=== PATIENT | female | born 1965 | race Caucasian/White ===

== ENCOUNTER 2019-08-31 01:24 | Inpatient (IN) | payer MEDICARE ==
[~2019-08-31] VITALS: Ht 157.5 cm; Wt 112.6 kg
[2019-08-31] MEDS ORDERED: FLUO40CA PO (04:26)
[2019-08-31 09:09] VITALS: BP 121/67
[2019-08-31] MEDS ORDERED: ALEV220T22 PO (09:51)
[2019-08-31] MEDS ORDERED: CHOL100029 PO (09:51)
[2019-08-31] MEDS ORDERED: CVS10CAP8 PO (09:51)
[2019-08-31] MEDS ORDERED: BUSP10TA PO (09:51)
[2019-08-31] MEDS ORDERED: OFIR10IN IV (09:51)
[2019-08-31] MEDS ORDERED: HYDR50TA70 PO ×2 (09:51)
[2019-08-31] MEDS ORDERED: ZOSY3INJ2 IV (09:51)
[2019-08-31] MEDS ORDERED: IRON325T9 PO (09:51)
[2019-08-31] MEDS ORDERED: [UNRECOGNIZED DRUG - CODE] INJ (09:51)
[2019-08-31] MEDS: NS 1,000 ML IV SCH ×3 (09:58→17:01)
[2019-08-31] MEDS: ACETAMINOPHEN TAB 650MG DOSE (2X325MG) PO PRN (09:58)
[2019-08-31 10:12] LABS: HEMATOCRIT 39.3 % (36.0-47.0); HEMOGLOBIN 12.6 g/dl (12.0-15.5); MEAN CORPUSCULAR HEMOGLOBIN 28.4 pg (27.0-33.0); MEAN CORPUSCULAR HGB CONC 32.1 g/dl (32.0-36.5); MEAN CORPUSCULAR VOLUME 88.5 fl (80.0-96.0); PLATELET COUNT, AUTOMATED 222 10^3/uL (150-450); RED BLOOD COUNT 4.44 10^6/uL (4.00-5.40); WHITE BLOOD COUNT 28.8 10^3/uL (4.0-10.0)
[2019-08-31 10:42] LABS: CALCIUM LEVEL 8.9 MG/DL (8.5-10.1); CREATININE FOR GFR 1.13 MG/DL (0.55-1.30); GLOMERULAR FILTRATION RATE 53.6 (>51); POTASSIUM SERUM 3.9 MEQ/L (3.5-5.1)
[2019-08-31 14:00] VITALS: BP 125/67
[2019-08-31] MEDS: FLUoxetine 20 MG CAP PO SCH (15:00)
[2019-08-31] MEDS ORDERED: ONDANSETRON 4 MG TAB (S0181) PO PRN (15:30)
[2019-08-31] MEDS ORDERED: KETOROLAC 30 MG/ML VIAL (J1885) IV PRN (15:30)
[2019-08-31] MEDS ORDERED: hydrOXYzine 50 MG TAB PO PRN (15:30)
[2019-08-31] MEDS: busPIRone 10 MG TAB PO SCH ×2 (16:00→22:00)
--- NOTE | 2019-08-31 16:30 | HPEPDOC ---
[facility] Medical History & Physical Date of Admission Aug 31, 2019 Date of Service: Aug 31, 2019 Attending Physician: JAVAN GRIDER MD History and Physical CHIEF COMPLAINT: Transferred for kidney stone HISTORY OF PRESENT ILLNESS: [54-year-old female with past medical history of anxiety, depression, vitamin D deficiency and renal calculi is transferred to [facility] for obstructing renal calculi. Patient reports feeling well up until yesterday, which is started having acute sharp abdominal and right flank pain similar to when she has had renovascular in the past. Her last episode of renal calculi was one year ago. She was found to have elevated white blood cell count of 20, lactate elevated to 3, transferred because no urologist available at other facility. Patient denies any short of breath, vomiting, diarrhea or constipation. 10 point review of system is negative except for above PAST MEDICAL HISTORY: 1. Anxiety and depression. 2. Vitamin D deficiency. 3. Renal calculi. PAST SURGICAL HISTORY: 1. Tubal ligation. SOCIAL HISTORY: Ex-smoker, quit 20 years ago, smoked 1 pack per day for 25 years Denies alcohol use. Denies drug use FAMILY HISTORY: Positive for diabetes mellitus ALLERGIES: Please see below. HOME MEDICATIONS: Please see below. PHYSICAL EXAMINATION: VITAL SIGNS: Please see below. GENERAL: No distress HEENT: Normocephalic, atraumatic, moist mucous membranes NECK: Supple CARDIOVASCULAR EXAMINATION: S1, S2, no murmurs RESPIRATORY EXAMINATION: Clear to auscultation, no wheezing ABDOMINAL EXAMINATION: Soft, mild diffuse tenderness, bilateral CVA tenderness, nondistended, positive bowel sounds EXTREMITIES: Range of motion intact SKIN: No rash NEUROLOGICAL EXAMINATION: Alert and oriented 3, no focal deficits PSYCHIATRIC EXAMINATION: Calm and cooperative LABORATORY DATA: See below. IMAGING: CT from other facility showing 11 mm right UPJ obstructing stone with moderate hydronephrosis MICROBIOLOGY: Please see below. ASSESSMENT: 54-year-old female with past medical history of anxiety, depression, vitamin D deficiency and renal calculi, presents with recurrent obstructive uropathy with moderate hydronephrosis and bacteremia. PLAN: 1. Obstructive uropathy. 11 mm calculi in the right UPJ with moderate hydronephrosis, blood cultures from other facility, positive, continue Zosyn, blood cultures pending, urology consulted (Dr. Gil), continue IV fluids, pain control, Zofran for nausea as needed. 2. Anxiety and depression. Continue home meds 3. Iron deficiency anemia Continue iron supplementation DVT prophylaxis: Heparin subcutaneous GI prophylaxis: Not needed Vital Signs Vital Signs Date Time Temp Pulse Resp B/P (MAP) Pulse Ox O2 Delivery O2 Flow Rate FiO2 08/31/19 09:09 98.6 83 16 121/67 (85) 97 Room Air Laboratory Data Labs 24H Laboratory Tests 2 08/31/19 09:56: Nucleated Red Blood Cells % (auto) 0.0, Anion Gap 8, Glomerular Filtration Rate 53.6, Calcium Level 8.9 CBC/BMP Laboratory Tests 08/31/19 09:56 Home Medications Scheduled Acetaminophen (Ofirmev) 1,000 Mg/100 Ml Vial, 1,000 MG IV ASDIRECTED RECEIVED AT [facility] Buspirone HCl (Buspirone HCl) 10 Mg Tablet, 20 MG PO TID Ferrous Sulfate (Iron) 325 Mg Tablet, 325 MG PO DAILY Fluoxetine Hcl (Fluoxetine HCl) 40 Mg Capsule, 40 MG PO BID TAKES MORNING AND 1500 Hydroxyzine HCl (Hydroxyzine HCl) 50 Mg Tablet, 50 MG PO QHS Ketorolac Tromethamine (Ketorolac Tromethamine) 60 Mg/2 Ml Syringe, 30 MG INJ ASDIRECTED RECEIVED AT [facility] Melatonin (Melatonin) 10 Mg Capsule, 10 MG PO QHS Piperacillin Sodium/Tazobactam (Zosyn 3.375 Gram Vial) 3.375 Gm Vial, 3.375 GM IV ASDIRECTED RECEIVED AT [facility] Vitamin D (Vitamin D3) 1,000 Unit Tablet, 1,000 UNITS PO DAILY Scheduled PRN Hydroxyzine HCl (Hydroxyzine HCl) 50 Mg Tablet, 50 MG PO BID PRN for ANXIETY Naproxen Sodium (Aleve) 220 Mg Tablet, 440 MG PO BID PRN for PAIN Allergies Coded Allergies: Sulfa (Sulfonamide Antibiotics) (Verified Allergy, Unknown, UNKNOWN, 08/31/19) divalproex sodium (Verified Adverse Reaction, Mild, "MAKES ME FLIP OUT", 08/31/19) A-FIB/CHADSVASC A-FIB History Current/History of A-Fib/PAF?: No JAVAN GRIDER MD Aug 31, 2019 16:30
[2019-08-31] MEDS ORDERED: ZOSYN 3.375 GM VIAL (J2543) IV SCH (17:00)
[2019-08-31] MEDS: PIPERACILLIN/TAZOBACTAM SOD 3.375 GM in D5W MINI-BAG PLUS 50 ML IV SCH ×2 (17:03→22:00)
--- NOTE | 2019-08-31 17:40 | SMCUROLCON ---
Urology Consultation General Date of Consultation 08/31/19 Reason For Consultation This patient is seen for Urolithiasis. History of Present Illness 54-year-old female with past medical history of anxiety, depression, vitamin D deficiency and renal calculi is transferred to [facility] for obstruct ing renal calculi. Patient reports feeling well up until yesterday, which is started having acute sharp abdominal upper right and radiating down the right side and right flank pain similar to when she has had obstructing stones in the past. Her last episode of renal calculi was one year ago. She was found to have elevated white blood cell count of 20, lactate elevated to 3, transferred because no urologist available at other facility. Patient denies any short of breath, vomiting, diarrhea or constipation. She requires Toradol for pain control. Past Medical History Medical History 1. Anxiety and depression. 2. Vitamin D deficiency. 3. Renal calculi. Surgical Hstory 1. Tubal ligation. 2. ESWL Social History * Smoker: former Smoker Alcohol: Denies Drugs: denies Medications Current Medications Current Medications Medications (Trade) Dose Ordered Sig/Moriah Route PRN Reason Start Time Stop Time Status Last Admin Dose Admin Acetaminophen (Tylenol Tab) 650 mg Q4H PRN PO PAIN OR FEVER 08/31/19 04:15 08/31/19 09:58 Buspirone HCl (Buspar) 20 mg TID PO 08/31/19 16:00 Ferrous Sulfate (Ferrous Sulfate) 325 mg DAILY PO 09/01/19 09:00 Fluoxetine HCl (PROzac) 40 mg BID@0900,1500 PO 08/31/19 15:00 Heparin Sodium (Porcine) (Heparin) 5,000 units Q8H SC 09/01/19 22:00 Home Med (Med Rec Complete!) ASDIRECTED XX 08/31/19 10:00 08/31/19 09:54 DC Hydroxyzine HCl (Atarax) 50 mg BIDP PRN PO ANXIETY 08/31/19 15:30 Hydroxyzine HCl (Atarax) 50 mg QHS PO 08/31/19 21:00 Ketorolac Tromethamine (ToRADol) 30 mg Q8HP PRN IV PAIN 08/31/19 15:30 09/05/19 15:29 08/31/19 17:06 Ondansetron HCl (Zofran) 4 mg Q8HP PRN PO NAUSEA OR VOMITING 08/31/19 15:30 08/31/19 17:06 Piperacillin Sod/ Tazobactam Sod (Zosyn) 3.375 gm Q6H IV 08/31/19 17:00 08/31/19 16:53 DC Piperacillin Sod/ Tazobactam Sod 3.375 gm/Dextrose 50 ml @ 50 mls/hr Q6H IV 08/31/19 17:00 08/31/19 17:03 Ramelteon (Rozerem) 8 mg QHS PO 08/31/19 21:00 Sodium Chloride 1,000 ml @ 150 mls/hr Q6H40M IV 08/31/19 05:00 08/31/19 17:01 Vitamin D (Vitamin D) 1,000 units DAILY PO 09/01/19 09:00 Allergies Allergies: Coded Allergies: Sulfa (Sulfonamide Antibiotics) (Verified Allergy, Unknown, UNKNOWN, 08/31/19) divalproex sodium (Verified Adverse Reaction, Mild, "MAKES ME FLIP OUT", 08/31/19) Review of Systems General: Reports: Chills; Denies: ROS Unobtainable, Night Sweats, Fatigue, Malaise, Normal Appetite, Other Symptoms Constitutional: Denies: Fever, Chills, Sweats, Weakness, Malaise, Other Eyes: Denies: Pain, Vision change, Conjunctivae inflammation, Eyelid inflammation, Redness, Other ENT: Denies: Head Aches, Ear Pain, Dysphagia, Sinus Congestion, Post Nasal Drip, Sore Throat, Epistaxis, Other Symptoms Skin: Denies: Rash, Lesions, Jaundice, Bruising, Itching, Dry, Breakdown, Nail Changes, Other Pulmonary: Denies: Dyspnea, Cough, Pleuritic Chest Pain, Other Symptoms Cardiovascular: Denies Chest Pain, Denies Palpitations, Denies Orthopnea, Denies Paroxysmal Noc. Dyspnea, Denies Edema, Denies Lt Headedness, Denies Other Symptoms Gastrointestinal: Reports: Nausea, Vomiting, Abdominal Pain; Denies: Diarrhea, Constipation, Melena, Hematochezia, Other Symptoms Genitourinary: Denies: Dysuria, Frequency, Incontinence, Hematuria, Retention, Other Symptoms Hematologic: Denies: Bruising, Bleeding Excessively, Petecchia, Purpura, Enlarged Lymph Nodes, Other Hematologic Endocrine: Denies: Polydipsia, Polyphagia, Polyuria, Heat Intolerance, Cold Intolerance, Other Endocrine Sx Musculoskeletal: Denies: Neck Pain, Back Pain, Shoulder Pain, Arm Pain, Hand Pain, Leg Pain, Foot Pain, Joint Pain, Muscle Pain, Spasms, Other Symptoms Neurological: Denies: Weakness, Numbness, Incoordination, Change in Speech, Confusion, Seizures, Other Symptoms Psych: Denies: Mood Normal, Anxiety, Depression, Memory Issues, Thoughts of Self Harm, Anger, Thoughts of harming Other, Other Psych Physical Examination General Exam: Alert, Cooperative, Moderate Distress Neck Exam: Supple Abdomen Exam: Soft, Tenderness, Mass Neuro Exam: Cranial Nerves 3-12 NL Psych Exam: Mental status NL Vital Signs/I&O Vital Signs Date Time Temp Pulse Resp B/P (MAP) Pulse Ox O2 Delivery O2 Flow Rate FiO2 08/31/19 14:00 97.9 81 18 125/67 (86) 97 Room Air Laboratory Data 24H Labs Laboratory Tests 2 08/31/19 09:56: Nucleated Red Blood Cells % (auto) 0.0, Anion Gap 8, Glomerular Filtration Rate 53.6, Calcium Level 8.9 08/31/19 15:43: Lactic Acid Level 1.0 08/31/19 16:16: Urine Color YELLOW, Urine Appearance CLOUDYH, Urine pH 5.0, Urine Specific [place] 1.028, Urine Protein 1+H, Urine Glucose (UA) NEGATIVE, Urine Ketones NEGATIVE, Urine Blood 3+H, Urine Nitrite NEGATIVE, Urine Bilirubin NEGATIVE, Urine Urobilinogen 0.2, Urine Leukocyte Esterase 3+H, Urine WBC (Auto) TNTCH, Urine RBC (Auto) TNTCH, Urine Hyaline Casts (Auto) 0, Urine Bacteria (Auto) NEGATIVE, Urine Squamous Epithelial Cells 2, Urine Mucus (Auto) SMALL, Urine Sperm (Auto) CBC/BMP Laboratory Tests 08/31/19 09:56 Microbiology Microbiology 08/31/19 Urine Culture, Received Pending 08/31/19 Blood Culture, Received Pending Assessment Pt is 54 yrs old with right obstructing mid ureteral stone [id number] associated with hydronephrosis and increased white count. 28.8 Plan Operating room for Right ureteral stent placement and retrograde pyelogram. Time Spent on Consult: Time Spent / Consult (Minutes): 40 KRYSTA SUNSHINE MD Aug 31, 2019 17:40
[2019-08-31 18:00] VITALS: BP 147/76
[2019-08-31] MEDS ORDERED: CONRAY-60 60% 50ML VIAL (Q9961) As Ordered ONE (19:47)
[2019-08-31] MEDS ORDERED: PROPOFOL 200 MG/20 ML VIAL As Ordered ONE ×2 (19:52→20:01)
[2019-08-31] MEDS ORDERED: fentaNYL 100 MCG/2 ML INJECTION (J3010) As Ordered ONE (19:52)
[2019-08-31] MEDS ORDERED: dexameTHASONE 4 MG/ML 1ML VIAL (J1100) As Ordered ONE (19:52)
[2019-08-31] MEDS ORDERED: LIDOCAINE 2% INJ 100 MG/5 ML SDV (FOR ANES.) As Ordered ONE (19:52)
[2019-08-31] MEDS ORDERED: MIDAZOLAM INJ 2 MG/2 ML VIAL (J2250) As Ordered ONE (19:52)
[2019-08-31] MEDS ORDERED: ONDANSETRON 4MG/2ML VIAL (J2405) As Ordered ONE (19:59)
[2019-08-31] MEDS ORDERED: HYDROMORPHONE HCL 0.5 MG/ 0.5 ML SYRINGE (J1170 PER 1) IV PRN (20:45)
[2019-08-31] MEDS ORDERED: LR 1,000 ML IV SCH (20:45)
[2019-08-31] MEDS ORDERED: fentaNYL 100 MCG/2 ML INJECTION (J3010) IV PRN (20:45)
[2019-08-31] MEDS ORDERED: ONDANSETRON 4MG/2ML VIAL (J2405) IV PRN (20:45)
[2019-08-31] MEDS ORDERED: PERCOCET 5MG/325MG TAB PO PRN (20:45)
--- NOTE | 2019-08-31 20:59 | ROOPDOC ---
[facility] Report Of Operation Report of Operation DATE OF PROCEDURE: 08/31/19 PREPROCEDURE DIAGNOSES: Right ureteral calculus obstruction POSTPROCEDURE DIAGNOSES: Same PROCEDURE: Cystoscopy, right retrograde pyelogram, and right ureteral stent placement. SURGEON: MD Louise GAS PLUMBING INSPECTOR: None ANESTHESIA: Gen. with LMA. ESTIMATED BLOOD LOSS: Approximately 0 mL. COMPLICATIONS: None. REMARKS: Right renal collecting system urine sample sent for culture. PROCEDURE NOTE: Patient 54-year-old female who last couple days, developed nausea and vomiting and right abdominal pain. CT scan of the abdomen and pelvis revealed a midureteral calculus, 5512 associated with hydronephrosis and increased white count to 28. DESCRIPTION OF PROCEDURE: Procedure was discussed with the patient in detail, consent form was signed. She was brought to the preop holding area anesthesia met with her discussed anesthesia and rail project engineer nurse met with her to confirm that it was the patient and that the procedure she is scheduled is as stated above. She is brought to procedure room and placed on the cystoscopy table after the initial timeout was performed. She was then given anesthesia and a LMA was placed. She is placed in lithotomy position, prepped and draped in standard fashion. A second timeout was performed. A 21 Czech cystoscope was placed to urethra. Bladder was inspected. All quadrants noted to be without any pathology and normal mucosal. The right ureteral orifice was identified and cannulated with a ureteral catheter. Contrast was injected into the ureter gingerly. Pollack catheter was placed into the renal pelvis and again injection was done gingerly. Urine sample was obtained from the right renal collecting system. Turbid urine was noted to be draining from the system. An 0.38 wire FlexTip was placed to the Pollack catheter. Once the tip of the wire was noted to be in the renal pelvis, the Pollack catheter was then removed leaving the wire. This is all done under fluoroscopic guidance and direct visualization. A 7 Czech ureteral stent was dipped in mineral oil and cannulated over the wire until the tip called in the right renal pelvis. The wire was then removed and ureteral stent distally and was coiled in the bladder. The bladder was filled up and drained several times because turbid urine was noted to be draining from the right collecting system. The bladder was empty, cystoscope was removed. Patient was properly washed off, taken out of lithotomy position and awakened from anesthesia. She was taken to the recovery room in stable condition. KRYSTA SUNSHINE MD Aug 31, 2019 20:59
[2019-08-31] MEDS: hydrOXYzine 50 MG TAB PO SCH (21:00)
[2019-08-31 21:56] VITALS: BP 130/78
[2019-08-31] MEDS: RAMELTEON 8 MG TAB (ROZEREM) PO SCH (22:00)
[2019-08-31 22:38] VITALS: BP 140/84
[2019-08-31 23:46] VITALS: BP 141/87
[2019-09-01 00:35] VITALS: BP 150/85
[2019-09-01] MEDS: NS 1,000 ML IV SCH ×3 (00:52→17:50)
[2019-09-01 01:58] VITALS: BP 152/87
[2019-09-01] MEDS: PIPERACILLIN/TAZOBACTAM SOD 3.375 GM in D5W MINI-BAG PLUS 50 ML IV SCH ×4 (05:31→22:12)
[2019-09-01] MEDS: HEPARIN SOD (PORCINE) 5000 UNITS/ML VIAL SC SCH ×3 (05:34→22:14)
[2019-09-01 06:00] VITALS: BP 150/87
[2019-09-01 06:27] LABS: HEMATOCRIT 39.3 % (36.0-47.0); HEMOGLOBIN 12.6 g/dl (12.0-15.5); MEAN CORPUSCULAR HEMOGLOBIN 28.8 pg (27.0-33.0); MEAN CORPUSCULAR HGB CONC 32.1 g/dl (32.0-36.5); MEAN CORPUSCULAR VOLUME 89.9 fl (80.0-96.0); PLATELET COUNT, AUTOMATED 192 10^3/uL (150-450); RED BLOOD COUNT 4.37 10^6/uL (4.00-5.40); WHITE BLOOD COUNT 19.8 10^3/uL (4.0-10.0)
[2019-09-01 06:46] LABS: ALBUMIN 2.7 GM/DL (3.2-5.2); ALT/SGPT 37 U/L (12-78); BILIRUBIN,TOTAL 0.6 MG/DL (0.2-1.0); BLOOD UREA NITROGEN 10 MG/DL (7-18); CALCIUM LEVEL 9.4 MG/DL (8.5-10.1); CARBON DIOXIDE LEVEL 21 MEQ/L (21-32); CHLORIDE LEVEL 112 MEQ/L (98-107); CREATININE FOR GFR 0.82 MG/DL (0.55-1.30); GLOMERULAR FILTRATION RATE > 60.0 (>51); GLUCOSE, FASTING 141 MG/DL (70-100); MAGNESIUM LEVEL 1.7 MG/DL (1.8-2.4); POTASSIUM SERUM 4.1 MEQ/L (3.5-5.1); SODIUM LEVEL 140 MEQ/L (136-145); TOTAL PROTEIN 6.6 GM/DL (6.4-8.2)
--- NOTE | 2019-09-01 07:56 | REP ---
Clinical: Retrograde pyelogram/stent placement. Technique: Intraoperative fluoroscopic imaging. Technique: Intraoperative fluoroscopic images demonstrate satisfactory right ureteral stent placement. Dense rounded 2 cm calculus noted in the right upper quadrant either representing gallstone or a large renal stone. Total fluoroscopic time 49 seconds (9.6 mGy). Impression: Satisfactory right ureteral stent placement. Electronically Signed by Uriel Arevalo MD 09/01/2019 07:48 A
[2019-09-01] MEDS: FLUoxetine 20 MG CAP PO SCH ×2 (09:30→15:29)
[2019-09-01] MEDS: busPIRone 10 MG TAB PO SCH ×3 (09:31→20:40)
[2019-09-01] MEDS: FERROUS SULFATE 325MG TAB PO SCH (09:31)
[2019-09-01] MEDS: VITAMIN D 1,000 INTERNATIONAL UNITS TABLET PO SCH (09:31)
[2019-09-01 10:00] VITALS: BP 141/89
[2019-09-01] MEDS: MAG SULF 1GM/100ML (MAG RUN) 1 GM in IV 1 EA IV SCH ×2 (10:10→11:25)
[2019-09-01 14:06] VITALS: BP 143/78
[2019-09-01] MEDS: ACETAMINOPHEN TAB 650MG DOSE (2X325MG) PO PRN (15:30)
--- NOTE | 2019-09-01 18:28 | IPNPDOC ---
Date Seen The patient was seen on 09/01/19. Progress Note HISTORY OF PRESENT ILLNESS: [54-year-old female with past medical history of anxiety, depression, vitamin D deficiency and renal calculi is transferred to [facility] for obstructing renal calculi. Patient reports feeling well up until yesterday, which is started having acute sharp abdominal and right flank pain similar to when she has had renovascular in the past. Her last episode of renal calculi was one year ago. She was found to have elevated white blood cell count of 20, lactate elevated to 3, transferred because no urologist available at other facility. Patient denies any short of breath, vomiting, diarrhea or constipation. 09/01/2019 Patient comfortable in bed, reports significant improvement in abdominal pain. No other complaints at this time, tolerating diet. 10 point review of system is negative except for above PHYSICAL EXAMINATION: VITAL SIGNS: Please see below. GENERAL: No distress HEENT: Normocephalic, atraumatic, moist mucous membranes NECK: Supple CARDIOVASCULAR EXAMINATION: S1, S2, no murmurs RESPIRATORY EXAMINATION: Clear to auscultation, no wheezing ABDOMINAL EXAMINATION: Soft, no tenderness, nondistended, positive bowel sounds EXTREMITIES: Range of motion intact SKIN: No rash NEUROLOGICAL EXAMINATION: Alert and oriented 3, no focal deficits PSYCHIATRIC EXAMINATION: Calm and cooperative LABORATORY DATA: See below. MICROBIOLOGY: Please see below. ASSESSMENT: 54-year-old female with past medical history of anxiety, depression, vitamin D deficiency and renal calculi, presents with recurrent obstructive uropathy with moderate hydronephrosis and bacteremia. PLAN: 1. Obstructive uropathy. 11 mm calculi in the right UPJ with moderate hydronephrosis, blood cultures from other facility positive, continue Zosyn, blood cultures pending, status post right ureteral stent placement, discontinue IV fluids. 2. Anxiety and depression. Continue home meds 3. Iron deficiency anemia Continue iron supplementation DVT prophylaxis: Heparin subcutaneous GI prophylaxis: Not needed VS, I&O, 24H, Fishbone Vital Signs/I&O Vital Signs Date Time Temp Pulse Resp B/P (MAP) Pulse Ox O2 Delivery O2 Flow Rate FiO2 09/01/19 14:06 97.7 97 18 143/78 (99) 95 Room Air 08/31/19 21:50 2.0 I&O- Last 24 Hours up to 6 AM 09/01/19 06:00 Intake Total 3950 ml Output Total 1001 ml Balance 2949 ml Laboratory Data 24H LABS Laboratory Tests 2 09/01/19 06:14: Nucleated Red Blood Cells % (auto) 0.0, Anion Gap 7L, Glomerular Filtration Rate > 60.0, Calcium Level 9.4, Magnesium Level 1.7L, Total Bilirubin 0.6, Aspartate Amino Transf (AST/SGOT) 26, Alanine Aminotransferase (ALT/SGPT) 37, Alkaline Phosphatase 85, Total Protein 6.6, Albumin 2.7L, Albumin/Globulin Ratio 0.69L CBC/BMP Laboratory Tests 09/01/19 06:14 Microbiology Microbiology 08/31/19 Urine Culture, Received Pending 08/31/19 Urine Culture - Final, Complete 08/31/19 Blood Culture - Preliminary, Resulted No growth after 24 hours . All specim... JAVAN GRIDER MD Sep 01, 2019 18:28
[2019-09-01] MEDS: RAMELTEON 8 MG TAB (ROZEREM) PO SCH (20:39)
[2019-09-01] MEDS: hydrOXYzine 50 MG TAB PO SCH (20:40)
[2019-09-01 21:53] VITALS: BP 138/73
[2019-09-02] MEDS: HEPARIN SOD (PORCINE) 5000 UNITS/ML VIAL SC SCH ×3 (05:55→21:43)
[2019-09-02] MEDS: PIPERACILLIN/TAZOBACTAM SOD 3.375 GM in D5W MINI-BAG PLUS 50 ML IV SCH ×3 (05:55→15:51)
[2019-09-02 06:00] VITALS: BP 139/72
[2019-09-02 07:53] LABS: HEMATOCRIT 36.1 % (36.0-47.0); HEMOGLOBIN 11.9 g/dl (12.0-15.5); MEAN CORPUSCULAR HEMOGLOBIN 28.7 pg (27.0-33.0); PLATELET COUNT, AUTOMATED 232 10^3/uL (150-450); RED BLOOD COUNT 4.15 10^6/uL (4.00-5.40); WHITE BLOOD COUNT 17.2 10^3/uL (4.0-10.0)
[2019-09-02 08:19] LABS: BLOOD UREA NITROGEN 10 MG/DL (7-18); CALCIUM LEVEL 9.5 MG/DL (8.5-10.1); CARBON DIOXIDE LEVEL 26 MEQ/L (21-32); CHLORIDE LEVEL 113 MEQ/L (98-107); CREATININE FOR GFR 0.74 MG/DL (0.55-1.30); GLOMERULAR FILTRATION RATE > 60.0 (>51); GLUCOSE, FASTING 97 MG/DL (70-100); MAGNESIUM LEVEL 1.8 MG/DL (1.8-2.4); PHOSPHORUS LEVEL 1.2 MG/DL (2.5-4.9); POTASSIUM SERUM 3.5 MEQ/L (3.5-5.1); SODIUM LEVEL 143 MEQ/L (136-145)
[2019-09-02 08:27] VITALS: BP 150/95
[2019-09-02 08:28] VITALS: BP 153/93
[2019-09-02] MEDS ORDERED: MAGNESIUM OXIDE 400 MG TAB (MAG-OX) PO ONE (08:45)
[2019-09-02] MEDS ORDERED: POTASSIUM CHLORIDE 10 MEQ SR TABLET PO ONE (08:45)
[2019-09-02] MEDS: busPIRone 10 MG TAB PO SCH ×3 (09:01→19:56)
[2019-09-02] MEDS: FLUoxetine 20 MG CAP PO SCH ×2 (09:01→14:49)
[2019-09-02] MEDS: FERROUS SULFATE 325MG TAB PO SCH (09:03)
[2019-09-02] MEDS: VITAMIN D 1,000 INTERNATIONAL UNITS TABLET PO SCH (09:03)
[2019-09-02] MEDS: POTASSIUM PHOSPHATE INJ 30 MMOL in D5W 500 ML IV ONE ×2 (10:19→12:12)
[2019-09-02 12:46] LABS: CLOSTRIDIUM DIFFICILE PCR POSITIVE (NEGATIVE)
[2019-09-02] MEDS ORDERED: K-PHOS NEUTRAL 250MG TABLET (SOD.PHOSPHATE/POT.PHOSPHATE) PO SCH (13:00)
[2019-09-02] MEDS: ACETAMINOPHEN TAB 650MG DOSE (2X325MG) PO PRN ×2 (13:23→19:59)
[2019-09-02 13:57] VITALS: BP 149/88
[2019-09-02] MEDS: K-PHOS NEUTRAL 250MG TABLET (SOD.PHOSPHATE/POT.PHOSPHATE) PO SCH ×3 (15:48→21:42)
[2019-09-02] MEDS ORDERED: VANC125C3 PO (17:13)
[2019-09-02] MEDS ORDERED: LEVA750T7 PO (17:13)
--- NOTE | 2019-09-02 19:22 | IPNPDOC ---
Date Seen The patient was seen on 09/02/19. Progress Note HISTORY OF PRESENT ILLNESS: [54-year-old female with past medical history of anxiety, depression, vitamin D deficiency and renal calculi is transferred to [facility] for obstructing renal calculi. Patient reports feeling well up until yesterday, which is started having acute sharp abdominal and right flank pain similar to when she has had renovascular in the past. Her last episode of renal calculi was one year ago. She was found to have elevated white blood cell count of 20, lactate elevated to 3, transferred because no urologist available at other facility. Patient denies any short of breath, vomiting, diarrhea or constipation. 09/01/2019 Patient comfortable in bed, reports significant improvement in abdominal pain. No other complaints at this time, tolerating diet. 09/02/2019 Patient reports diarrhea, stool positive for C. difficile, no other complains. 10 point review of system is negative except for above PHYSICAL EXAMINATION: VITAL SIGNS: Please see below. GENERAL: No distress HEENT: Normocephalic, atraumatic, moist mucous membranes NECK: Supple CARDIOVASCULAR EXAMINATION: S1, S2, no murmurs RESPIRATORY EXAMINATION: Clear to auscultation, no wheezing ABDOMINAL EXAMINATION: Soft, no tenderness, nondistended, positive bowel sounds EXTREMITIES: Range of motion intact SKIN: No rash NEUROLOGICAL EXAMINATION: Alert and oriented 3, no focal deficits PSYCHIATRIC EXAMINATION: Calm and cooperative LABORATORY DATA: See below. MICROBIOLOGY: Please see below. ASSESSMENT: 54-year-old female with past medical history of anxiety, depression, vitamin D deficiency and renal calculi, presents with recurrent obstructive uropathy with moderate hydronephrosis and bacteremia. PLAN: 1. Obstructive uropathy. 11 mm calculi in the right UPJ with moderate hydronephrosis, blood cultures from other facility positive, continue Zosyn, status post right ureteral stent placement. C. difficile: Start vancomycin 125 mg every 6 hours. 2. Anxiety and depression. Continue home meds 3. Iron deficiency anemia Continue iron supplementation DVT prophylaxis: Heparin subcutaneous GI prophylaxis: Not needed VS, I&O, 24H, Fishbone Vital Signs/I&O Vital Signs Date Time Temp Pulse Resp B/P (MAP) Pulse Ox O2 Delivery O2 Flow Rate FiO2 09/02/19 13:57 97.9 76 16 149/88 (108) 94 Room Air 08/31/19 21:50 2.0 I&O- Last 24 Hours up to 6 AM 09/02/19 06:00 Intake Total 1931 ml Output Total 350 ml Balance 1581 ml Laboratory Data 24H LABS Laboratory Tests 2 09/02/19 06:38: Nucleated Red Blood Cells % (auto) 0.0, Anion Gap 4L, Glomerular Filtration Rate > 60.0, Calcium Level 9.5, Phosphorus Level 1.2L, Magnesium Level 1.8 09/02/19 11:24: Clostridium difficile [id number] PRESUMPTIVE NEGATIVE, Clostridium difficile Toxin (PCR) POSITIVEA CBC/BMP Laboratory Tests 09/02/19 06:38 Microbiology Microbiology 08/31/19 Urine Culture, Received Pending 08/31/19 Urine Culture - Final, Complete 08/31/19 Blood Culture - Preliminary, Resulted No Growth after 48 hours. All Specime... JAVAN GRIDER MD Sep 02, 2019 19:22
[2019-09-02] MEDS: hydrOXYzine 50 MG TAB PO SCH (19:57)
[2019-09-02] MEDS: RAMELTEON 8 MG TAB (ROZEREM) PO SCH (19:57)
[2019-09-02] MEDS: VANCOMYCIN ORAL SOL 250MG/5ML ORAL SYRINGE PO SCH (21:43)
[2019-09-02 22:00] VITALS: BP 136/83
[2019-09-03] MEDS: PIPERACILLIN/TAZOBACTAM SOD 3.375 GM in D5W MINI-BAG PLUS 50 ML IV SCH ×3 (00:22→11:00)
[2019-09-03] MEDS: VANCOMYCIN ORAL SOL 250MG/5ML ORAL SYRINGE PO SCH ×3 (00:22→13:03)
[2019-09-03] MEDS: HEPARIN SOD (PORCINE) 5000 UNITS/ML VIAL SC SCH ×2 (05:14→13:03)
[2019-09-03] MEDS: ACETAMINOPHEN TAB 650MG DOSE (2X325MG) PO PRN (05:15)
[2019-09-03 06:00] VITALS: BP 141/85
[2019-09-03 07:22] LABS: BLOOD UREA NITROGEN 8 MG/DL (7-18); CALCIUM LEVEL 9.4 MG/DL (8.5-10.1); CARBON DIOXIDE LEVEL 28 MEQ/L (21-32); CHLORIDE LEVEL 109 MEQ/L (98-107); CREATININE FOR GFR 0.66 MG/DL (0.55-1.30); GLOMERULAR FILTRATION RATE > 60.0 (>51); GLUCOSE, FASTING 110 MG/DL (70-100); MAGNESIUM LEVEL 1.6 MG/DL (1.8-2.4); PHOSPHORUS LEVEL 2.2 MG/DL (2.5-4.9); POTASSIUM SERUM 3.4 MEQ/L (3.5-5.1); SODIUM LEVEL 143 MEQ/L (136-145)
[2019-09-03] MEDS ORDERED: MAGNESIUM OXIDE 400 MG TAB (MAG-OX) PO ONE (09:00)
[2019-09-03] MEDS ORDERED: POTASSIUM CHLORIDE 10 MEQ SR TABLET PO ONE (09:00)
[2019-09-03] MEDS: busPIRone 10 MG TAB PO SCH (09:01)
[2019-09-03] MEDS: K-PHOS NEUTRAL 250MG TABLET (SOD.PHOSPHATE/POT.PHOSPHATE) PO SCH (09:02)
[2019-09-03] MEDS: FERROUS SULFATE 325MG TAB PO SCH (09:02)
[2019-09-03] MEDS: VITAMIN D 1,000 INTERNATIONAL UNITS TABLET PO SCH (09:02)
[2019-09-03] MEDS: FLUoxetine 20 MG CAP PO SCH (09:02)
[2019-09-03] MEDS ORDERED: FIRV50SO PO (11:18)
[2019-09-03 14:00] VITALS: BP 150/87
[2019-09-03] MEDS ORDERED: VANC125C3 PO (14:50)
--- NOTE | 2019-09-03 17:59 | DS.PDOC ---
Discharge Summary General Date of Admission Aug 31, 2019 at 04:13 Date of Discharge 09/03/2019 Attending Physician: JAVAN GRIDER MD Discharge Summary PROCEDURES PERFORMED DURING STAY: None. ADMITTING DIAGNOSES: 1. Obstructive uropathy. DISCHARGE DIAGNOSES: 1. Obstructive uropathy, UTI, C. difficile. COMPLICATIONS/CHIEF COMPLAINT: Urolithiasis. HISTORY OF PRESENT ILLNESS: 54-year-old female with past medical history of anxiety, depression, and renal colic, was admitted for obstructive uropathy with right-sided hydronephrosis. She underwent right ureteral stent placement by urology. She was also found to have UTI, treated with Zosyn, subsequent development of C. difficile. She was started on oral vancomycin and antibiotics were switched to Levaquin for discharge. Patient will complete a total of 5 days for UTI and 10 days of oral vancomycin for C. difficile. HOSPITAL COURSE: As above. DISCHARGE MEDICATIONS: Please see below. ALLERGIES: Please see below. PHYSICAL EXAMINATION: VITAL SIGNS: Please see below. GENERAL: No distress HEENT: Normocephalic, atraumatic, moist mucous membranes NECK: Supple CARDIOVASCULAR EXAMINATION: S1, S2, no murmurs RESPIRATORY EXAMINATION: Clear to auscultation, no wheezing ABDOMINAL EXAMINATION: Soft, no tenderness, nondistended, positive bowel sounds EXTREMITIES: Range of motion intact SKIN: No rash NEUROLOGICAL EXAMINATION: Alert and oriented 3, no focal deficits PSYCHIATRIC EXAMINATION: Calm and cooperative LABORATORY DATA: Please see below. PROGNOSIS: Good ACTIVITY: As tolerated. DIET: Regular DISCHARGE PLAN: Patient will follow with urologist and PCP once 2 weeks DISPOSITION: 01 Home, Self-Care. DISCHARGE INSTRUCTIONS: 1. As above. DISCHARGE CONDITION: Stable. TIME SPENT ON DISCHARGE: Greater than 35 minutes. Vital Signs/I&Os Vital Signs Date Time Temp Pulse Resp B/P (MAP) Pulse Ox O2 Delivery O2 Flow Rate FiO2 09/03/19 06:00 97.6 79 16 141/85 (103) 92 Room Air 08/31/19 21:50 2.0 I&O- Last 24 Hours up to 6 AM 09/03/19 06:00 Intake Total 1950 ml Output Total 900 ml Balance 1050 ml Laboratory Data Labs 24H Laboratory Tests 2 09/03/19 06:27: Anion Gap 6L, Glomerular Filtration Rate > 60.0, Calcium Level 9.4, Phosphorus Level 2.2#L, Magnesium Level 1.6L CBC/BMP Laboratory Tests 09/03/19 06:27 Microbiology Microbiology 08/31/19 Urine Culture - Final, Complete Escherichia Coli 08/31/19 Urine Culture - Final, Complete 08/31/19 Blood Culture - Preliminary, Resulted No Growth after 72 hours. All specime... Discharge Medications Scheduled Buspirone HCl (Buspirone HCl) 10 Mg Tablet, 20 MG PO TID, (Reported) Ferrous Sulfate (Iron) 325 Mg Tablet, 325 MG PO DAILY, (Reported) Fluoxetine Hcl (Fluoxetine HCl) 40 Mg Capsule, 40 MG PO BID, (Reported) TAKES MORNING AND 1500 Hydroxyzine HCl (Hydroxyzine HCl) 50 Mg Tablet, 50 MG PO QHS, (Reported) Levofloxacin (Levaquin) 750 Mg Tablet, 1 TAB PO DAILY Melatonin (Melatonin) 10 Mg Capsule, 10 MG PO QHS, (Reported) Vancomycin Hcl (Vancomycin HCl) 125 Mg Capsule, 1 CAP PO QID Vitamin D (Vitamin D3) 1,000 Unit Tablet, 1,000 UNITS PO DAILY, (Reported) Scheduled PRN Hydroxyzine HCl (Hydroxyzine HCl) 50 Mg Tablet, 50 MG PO BID PRN for ANXIETY, (Reported) Naproxen Sodium (Aleve) 220 Mg Tablet, 440 MG PO BID PRN for PAIN, (Reported) Allergies Coded Allergies: Sulfa (Sulfonamide Antibiotics) (Verified Allergy, Unknown, UNKNOWN, ) divalproex sodium (Verified Adverse Reaction, Mild, "MAKES ME FLIP OUT", 08/31/19) JAVAN GRIDER MD Sep 03, 2019 17:59
== END 2019-09-03 16:00 | disposition home or self-care (01) | DRG 660 ==
LOC: M MS5PR 04:13
PROVIDERS: ADMIT Internal Medicine; ATTEND Internal Medicine
PROC: 0T768DZ Dilation of Right Ureter with Intraluminal Device, Via Natural or Artificial Opening Endoscopic (ICD-10-PCS; principal; 2019-08-31 17:30)
DX: N13.2 Hydronephrosis with renal and ureteral calculous obstruction (principal); A04.72 Enterocolitis due to Clostridium difficile, not specified as recurrent; N39.0 Urinary tract infection, site not specified; F41.9 Anxiety disorder, unspecified; D50.9 Iron deficiency anemia, unspecified; F32.9 Major depressive disorder, single episode, unspecified; E55.9 Vitamin D deficiency, unspecified; B96.20 Unspecified Escherichia coli [E. coli] as the cause of diseases classified elsewhere; Z87.891 Personal history of nicotine dependence; Z79.899 Other long term (current) drug therapy; Z88.2 Allergy status to sulfonamides; Z88.8 Allergy status to other drugs, medicaments and biological substances

== ENCOUNTER 2019-09-25 09:37 | Day surgery (SDC) | payer MEDICARE ==
[~2019-09-25] VITALS: Ht 157.5 cm; Wt 105.7 kg
[~2019-09-25 09:37] MED LIST: ALEV220T22 PO; BUSP10TA PO; CHOL100029 PO; CVS10CAP8 PO; FIRV50SO PO; FLUO40CA PO; HYDR-3713 PO; HYDR50TA70 PO; IRON325T9 PO; LEVA750T7 PO; LIDOCAINE 1% MDV 20ML VIAL SQ PRN; LIDOCAINE 2% INJ 100 MG/5 ML SDV (FOR ANES.) As Ordered ONE; LISI10TA4 PO; LR 1,000 ML IV ONE; MIDAZOLAM INJ 2 MG/2 ML VIAL (J2250) As Ordered ONE; OFIR10IN IV; ONDANSETRON 4MG/2ML VIAL (J2405) As Ordered ONE; PROPOFOL 200 MG/20 ML VIAL As Ordered ONE; VANC125C3 PO; ZOSY3INJ2 IV; [UNRECOGNIZED DRUG - CODE] INJ; dexameTHASONE 4 MG/ML 1ML VIAL (J1100) As Ordered ONE; fentaNYL 100 MCG/2 ML INJECTION (J3010) As Ordered ONE
[2019-09-25] MEDS ORDERED: CONRAY-60 60% 50ML VIAL (Q9961) As Ordered ONE (09:54)
[2019-09-25 10:10] LABS: INR 1.03; PROTHROMBIN TIME 13.2 SECONDS (11.8-14.0)
[2019-09-25] MEDS ORDERED: cefTRIAXone SOD 1 GM in D5W MINI-BAG PLUS 50 ML IV ONE (10:15)
[2019-09-25] MEDS ORDERED: ONDANSETRON 4MG/2ML VIAL (J2405) IV ONE (10:30)
[2019-09-25] MEDS ORDERED: SUCCINYLCHOLINE 100 MG/5 ML SYRINGE (J0330) As Ordered ONE (10:48)
[2019-09-25] MEDS ORDERED: ROCURONIUM BROMIDE 50 MG/5 ML VIAL As Ordered ONE (10:48)
[2019-09-25] MEDS ORDERED: ePHEDrine SULFATE 25 MG/5 ML(5MG/ML) SYRINGE As Ordered ONE (11:13)
[2019-09-25] MEDS ORDERED: PHENYLephrine HCL 500 MCG/5 ML (100MCG/ML) SYRINGE (J2370) As Ordered ONE (11:13)
[2019-09-25] MEDS ORDERED: SUGAMMADEX SODIUM 500 MG/5 ML VIAL (BRIDION) As Ordered ONE (11:16)
--- NOTE | 2019-09-25 12:21 | REP ---
Clinical: Nephrolithiasis. Technique: Intraoperative fluoroscopic imaging. Findings: Multiple images demonstrate satisfactory right ureteral stent placement. Total fluoroscopic time 10 seconds. Impression: Satisfactory right ureteral stent placement. Electronically Signed by Uriel Arevalo MD 09/25/2019 12:13 P
[2019-09-25] MEDS ORDERED: LR 1,000 ML IV SCH (12:30)
[2019-09-25] MEDS ORDERED: fentaNYL 100 MCG/2 ML INJECTION (J3010) IV PRN (12:30)
[2019-09-25] MEDS ORDERED: PERCOCET 5MG/325MG TAB PO PRN ×2 (12:30)
[2019-09-25 14:00] VITALS: BP 116/79
--- NOTE | 2019-09-26 14:18 | RO ---
DATE OF PROCEDURE: 09/25/2019 PREPROCEDURE DIAGNOSIS: Right kidney stones. POSTPROCEDURE DIAGNOSIS: Right kidney stones. PROCEDURE: Cystoscopy, right ureteroscopy with laser lithotripsy and basket extraction of stones, right retrograde pyelogram with intraoperative interpretation of images, right ureteral stent exchange. SURGEON: Dakota Reynolds MD CERTIFIED CORPORATE TRAVEL EXECUTIVE: None. ANESTHESIA: General. OPERATIVE INDICATIONS: This is a 54-year-old female who was found to have obstructing proximal right ureteral stone a few weeks ago. She had a right ureteral stent placed at the time. She was brought to the operating room today for definitive management of her kidney stones. DESCRIPTION OF PROCEDURE: The patient was brought to the operating room and general anesthesia was induced. Culture-specific antibiotics were infused. She was then placed in the dorsal lithotomy position and prepped and draped in the usual sterile fashion. At this point, a rigid cystoscope was inserted into the urethral meatus and advanced into the bladder. The previously placed right ureteral stent was grasped and withdrawn until the distal end was seen protruding from the urethral meatus. I then advanced a guidewire up the stent and then the stent was completely removed. I then advanced the ureteral access over the wire into the right collecting system. I then went up the ureteral access sheath with a flexible ureteroscope and within the right renal pelvis, the 12 mm stone was seen. The stone was then fragmented into smaller pieces using a 200 micron laser fiber. All the fragments were then removed using a basket. Once I confirmed all the fragments had been removed, a retrograde pyelogram was performed and was notable for mild right hydronephrosis, no extravasation. I then withdrew the ureteroscope along with the access sheath and no additional stones were seen within the ureter. I then utilized the wire to advance a 7-Thai x 22-32 cm JJ ureteral stent into the right collecting system. The wire was removed, and there were adequate curls of the stent in the right renal pelvis and in the bladder. The bladder was emptied of all fluids. This marked the conclusion of the procedure. The patient was then taken out of the dorsal lithotomy position, awakened from anesthesia and transported to the recovery room in stable condition. Estimated blood loss: 5 mL. Complications: None. Specimens: Kidney stone fragments. PLAN: The patient will followup in the clinic in a week or two for stent removal.
== END 2019-09-25 14:07 | disposition home or self-care (01) ==
LOC: M SDC 09:37
PROVIDERS: ATTEND Urology
DX: N20.0 Calculus of kidney (principal); I10 Essential (primary) hypertension; E78.5 Hyperlipidemia, unspecified; K58.8 Other irritable bowel syndrome; D64.9 Anemia, unspecified; F41.9 Anxiety disorder, unspecified; F32.9 Major depressive disorder, single episode, unspecified; Z87.891 Personal history of nicotine dependence; Z88.2 Allergy status to sulfonamides; Z88.8 Allergy status to other drugs, medicaments and biological substances; Z79.899 Other long term (current) drug therapy
CPT/HCPCS: 36415; 52356; 74420; 82360; 85610; 88300; C1769; C1894; C2617; J0330; J0696; J1100; J2250; J2370; J2405; J3010; Q9961